=== PATIENT | male | born 1945 | race Caucasian/White ===

== ENCOUNTER → 2016-12-05 | Outpatient (CLI) | payer OTHER, MEDICARE | LOC: BMCIMAGING 13:01 | PROVIDERS: ATTEND Internal Medicine | DX: R50.9 Fever, unspecified (principal); R61 Generalized hyperhidrosis ==

== ENCOUNTER 2017-03-23 14:03 | Emergency (ER) | payer OTHER, MEDICARE ==
--- NOTE | 2017-03-23 14:15 | EDPHY ---
H & P Stated Complaint: EKG at PCP showed a flutter, new Dx, only c/o mild SOB Time Seen by Provider: 03/23/17 14:14 HPI/ROS: CHIEF COMPLAINT: Newly diagnosed arrhythmia HISTORY OF PRESENT ILLNESS: The patient is referred from his primary care provider's office for evaluation of asymptomatic tachycardia. The patient reports a prior history of atrial fibrillation approximately 15 years ago. The patient takes no current medications. The patient denies any chest pain or shortness of breath currently. He has been having mild intermittent dyspnea for the past several months. The patient has no sensation of tachycardia currently. The patient denies fever, cough or congestion. He denies asymmetric calf pain or swelling. He denies additional acute complaints. REVIEW OF SYSTEMS: A comprehensive 10 point review of systems is otherwise negative aside from elements mentioned in the history of present illness. Source: Patient - Personal History Current Tetanus/Diphtheria Vaccine: Unsure - Medical/Surgical History Hx Asthma: Yes Hx Chronic Respiratory Disease: No Hx Diabetes: No Hx Cardiac Disease: No Hx Renal Disease: No Hx Cirrhosis: No Hx Alcoholism: No Hx HIV/AIDS: No Hx Splenectomy or Spleen Trauma: No Other PMH: PMH: asthma. PSH: hernia repair - Social History Smoking Status: Never smoked - Physical Exam Exam: General Appearance: Alert, no distress Eyes: Pupils equal and round no pallor or injection ENT, Mouth: Mucous membranes moist Respiratory: There are no retractions, lungs are clear to auscultation Cardiovascular: Tachycardic, regular Gastrointestinal: Abdomen is soft and nontender, no masses, bowel sounds normal Neurological: A&O, normal motor function, normal sensory exam, normal cranial nerves Skin: Warm and dry, no rashes Musculoskeletal: Neck is supple nontender Extremities: symmetrical, full range of motion Constitutional: Initial Vital Signs Temperature (C) 36.3 C 03/23/17 14:08 Heart Rate 126 H 03/23/17 14:08 Respiratory Rate 16 03/23/17 14:08 Blood Pressure 114/95 H 03/23/17 14:08 O2 Sat (%) 91 L 03/23/17 14:08 O2 Delivery Mode Room Air Allergies/Adverse Reactions: No Known Allergies Allergy (Unverified 03/23/17 14:07) Home Medications: Medication Instructions Recorded Advair 250/50 (*) 03/23/17 Odette Allergy 03/23/17 Medical Decision Making - Diagnostics EKG Interpretation: EKG: Complete interpretation has been separately recorded in the [facility] archive. Summary impression: Atrial flutter, rate 128 Imaging Results: Imaging Impressions Chest X-Ray 03/23/17 14:20 Impression: Clear lungs. No acute process. ED Course/Re-evaluation: The patient presents to the ED with atrial flutter of undetermined chronicity. The patient is asymptomatic. The patient's chest x-ray demonstrates no evidence of failure. The patient's D-dimer is negative which I feel adequately excludes pulmonary embolism. The patient is not anemic. He is in no acute distress. The patient did receive 30 mg of oral diltiazem in the emergency department. I consulted with Dr. Luis Alfredo Soto from the [facility]. The patient will be started on Eliquis and oral diltiazem. He will contact Dr. Soto's a office in the morning to schedule a follow-up visit for further evaluation of his atrial flutter. The patient was examined by myself several times throughout his stay in the emergency department. He continues to have no chest pain or shortness of breath. He is comfortable being discharged home and following up with Cardiology. Differential Diagnosis: Differential diagnosis considered includes atrial fibrillation, atrial flutter, congestive heart failure, myocardial infarction, pulmonary embolism - Data Points Laboratory Results: Laboratory Results 03/23/17 14:15 03/23/17 14:15 03/23/17 03/23/17 03/23/17 14:15 14:15 14:15 WBC 8.30 10^3/uL 10^3/uL (3.80-9.50) RBC 5.24 10^6/uL 10^6/uL (4.40-6.38) Hgb 16.6 g/dL g/dL (13.7-17.5) Hct 47.3 % % (40.0-51.0) MCV 90.3 fL fL (81.5-99.8) MCH 31.7 pg pg (27.9-34.1) MCHC 35.1 g/dL g/dL (32.4-36.7) RDW 13.8 % % (11.5-15.2) Plt Count 218 10^3/uL 10^3/uL (150-400) MPV 10.2 fL fL (8.7-11.7) Neut % (Auto) 55.2 % % (39.3-74.2) Lymph % (Auto) 22.8 % % (15.0-45.0) [place] % (Auto) 9.5 % % (4.5-13.0) Eos % (Auto) 11.4 % H % (0.6-7.6) Baso % (Auto) 0.7 % % (0.3-1.7) Nucleat RBC Rel Count 0.0 % % (0.0-0.2) Absolute Neuts (auto) 4.58 10^3/uL 10^3/uL (1.70-6.50) Absolute Lymphs (auto) 1.89 10^3/uL 10^3/uL (1.00-3.00) Absolute Monos (auto) 0.79 10^3/uL 10^3/uL (0.30-0.80) Absolute Eos (auto) 0.95 10^3/uL H 10^3/uL (0.03-0.40) Absolute Basos (auto) 0.06 10^3/uL 10^3/uL (0.02-0.10) Absolute Nucleated RBC 0.00 10^3/uL 10^3/uL (0-0.01) Immature Gran % 0.4 % % (0.0-1.1) Immature Gran # 0.03 10^3/uL 10^3/uL (0.00-0.10) D-Dimer 0.46 ug/mLFEU ug/mLFEU (0.00-0.50) Sodium 142 mEq/L mEq/L (134-144) Potassium 4.5 mEq/L mEq/L (3.5-5.2) Chloride 109 mEq/L mEq/L (97-110) Carbon Dioxide 22 mEq/l mEq/l (22-31) Anion Gap 11 mEq/L mEq/L (8-16) BUN 20 mg/dL mg/dL (7-23) Creatinine 0.9 mg/dL mg/dL (0.7-1.3) Estimated GFR > 60 Glucose 120 mg/dL H mg/dL (70-100) Calcium 9.5 mg/dL mg/dL (8.5-10.4) Troponin I < 0.012 ng/mL ng/mL (0.000-0.034) NT-Pro-B Natriuret Pep 132 pg/mL H pg/mL (0-125) Medications Given: Discontinued Medications Diltiazem HCl (Cardizem Immediate Release) 30 mg PO EDNOW ONE Stop: 03/23/17 14:43 Last Admin: 03/23/17 15:46 Dose: 30 mg Departure - Departure Disposition: Home, Routine, Self-Care Clinical Impression: Atrial flutter Condition: Good Instructions: A-fib (Atrial Fibrillation) (ED) Additional Instructions: 1. Please begin diltiazem and Eliquis as prescribed. 2. Please contact the legal editor at [facility], Dr. Soto, tomorrow to schedule a follow-up visit for your atrial flutter. 3. Please return to the ED for any chest pain or shortness of breath. Referrals: Prakash Soto MD [Medical Doctor] - As per Instructions
--- NOTE | 2017-03-23 14:17 | CPEKG ---
Heart Rate: 128 RR Interval: 469 P-R Interval: 125 QRSD Interval: 100 QT Interval: 336 QTC Interval: 491 P [place]: 0 QRS [place]: 260 T Wave [place]: 51 EKG Severity - ABNORMAL ECG - EKG Impression: A-FLUTTER W/ PREDOM 2:1 AV BLOCK, A-RATE 0 Electronically Signed By: Alan Torres 23-Mar-2017 15:57:41
[2017-03-23 14:27] LABS: % IMMATURE GRANULYOCYTES 0.4 % (0.0-1.1); ABSOLUTE IMMATURE GRANULOCYTES 0.03 10^3/uL (0.00-0.10); ADD DIFF? NO; ADD MORPH? NO; ADD SCAN? NO; ATYPICAL LYMPHOCYTE FLAG 0 (0-99); FRAGMENT RBC FLAG 0 (0-99); HEMATOCRIT 47.3 % (40.0-51.0); HEMOGLOBIN 16.6 g/dL (13.7-17.5); LEFT SHIFT FLG 0 (0-99); LIPEMIA HEMOLYSIS FLAG 90 (0-99); MEAN CELL HEMOGLOBIN 31.7 pg (27.9-34.1); MEAN CELL HEMOGLOBIN CONCENTR. 35.1 g/dL (32.4-36.7); MEAN CELL VOLUME 90.3 fL (81.5-99.8); MEAN PLATELET VOLUME 10.2 fL (8.7-11.7); PLATELET CLUMPS FLAG 0 (0-99); PLATELET COUNT 218 10^3/uL (150-400); RED BLOOD CELL COUNT 5.24 10^6/uL (4.40-6.38); RED CELL DISTRIBUTION WIDTH 13.8 % (11.5-15.2)
[2017-03-23 14:40] LABS: ANION GAP 11 mEq/L (8-16); CALCIUM 9.5 mg/dL (8.5-10.4); CARBON DIOXIDE 22 mEq/l (22-31); CHLORIDE 109 mEq/L (97-110); CREATININE 0.9 mg/dL (0.7-1.3); GLOMERULAR FILTRATION RATE > 60; GLUCOSE 120 mg/dL (70-100); POTASSIUM 4.5 mEq/L (3.5-5.2); SODIUM 142 mEq/L (134-144)
[2017-03-23] MEDS ORDERED: DILTIAZEM 30 MG TAB PO ONE (14:42)
[2017-03-23 14:52] LABS: TROPONIN I < 0.012 ng/mL (0.000-0.034)
[2017-03-23] MEDS ORDERED: APIXABAN 5 MG TAB PO ONE (15:53)
[2017-03-23 16:49] VITALS: BP 116/82; PULSE 110; RESP 15; TEMP 98.2; O2SAT 94
== END 2017-03-23 16:47 | disposition home or self-care (01) ==
DX: I48.92 Unspecified atrial flutter (principal); J45.909 Unspecified asthma, uncomplicated

== ENCOUNTER 2017-03-30 07:32 | Day surgery (SDC) | payer OTHER, MEDICARE ==
[2017-03-30] MEDS ORDERED: NS 500 ML IV ONE (07:44)
[2017-03-30] MEDS ORDERED: fentaNYL 100 MCG/2 ML INJ IVP ONE (07:44)
[2017-03-30] MEDS ORDERED: MIDAZOLAM 2 MG/2 ML VIAL IVP ONE (07:44)
[2017-03-30] MEDS ORDERED: BENZOCAINE UNIT DOSE SPRAY HURRICAINE MM ONE (07:44)
[2017-03-30] MEDS ORDERED: ATROPINE SULFATE 1 MG/10 ML SYR IVP ONE (07:44)
--- NOTE | 2017-03-30 08:09 | CPEKG ---
Heart Rate: 117 RR Interval: 513 P-R Interval: 60 QRSD Interval: 104 QT Interval: 380 QTC Interval: 531 P [place]: 0 QRS [place]: 264 T Wave [place]: -37 EKG Severity - ABNORMAL ECG - EKG Impression: ATRIAL FLUTTER EKG Impression: LEFT ANTERIOR FASCICULAR BLOCK EKG Impression: PROLONGED QT INTERVAL Electronically Signed By: Janet Hopkins 30-Mar-2017 08:43:25
[2017-03-30 08:57] LABS: INR 1.02 (0.83-1.16); PROTIME(PATIENT) 13.6 SEC (12.0-15.0)
[2017-03-30 08:58] LABS: ANION GAP 10 mEq/L (8-16); APTT 29.6 SEC (23.0-38.0); CALCIUM 9.1 mg/dL (8.5-10.4); CARBON DIOXIDE 24 mEq/l (22-31); CHLORIDE 107 mEq/L (97-110); CREATININE 0.9 mg/dL (0.7-1.3); GLOMERULAR FILTRATION RATE > 60; GLUCOSE 99 mg/dL (70-100); MAGNESIUM 1.8 mg/dL (1.6-2.3); POTASSIUM 4.1 mEq/L (3.5-5.2); SODIUM 141 mEq/L (134-144)
[2017-03-30] MEDS ORDERED: APIXABAN 5 MG TAB ONE (09:01)
[2017-03-30] MEDS ORDERED: APIXABAN 5 MG TAB PO ONE (09:15)
--- NOTE | 2017-03-30 09:21 | PDGENHP ---
History & Physical Chief Complaint: New onset Aflutter History of Present Illness: 71 year old male with new onset atrial flutter. PMH of asthma. Relevant Physical Exam: Awake, alert, appropriate.
[2017-03-30] MEDS ORDERED: PROPOFOL 200 MG/20 ML VIAL ONE ×2 (10:16)
--- NOTE | 2017-03-30 10:20 | PDANEPAE ---
ANE History of Present Illness new onset a. flutter p/f LEONCIO/CV ANE Past Medical History - Cardiovascular History Hx Hypertension: No Hx Arrhythmias: Yes Hx Chest Pain: No Hx Coronary Artery / Peripheral Vascular Disease: No Hx CHF / Valvular Disease: No Hx Palpitations: No - Pulmonary History Hx COPD: No Hx Asthma/Reactive Airway Disease: Yes Hx Recent Upper Respiratory Infection: No Hx Oxygen in Use at Home: No Hx Sleep Apnea: No - Endocrine History Hx Diabetes: No Obesity: no ANE Review of Systems Review of systems is: negative Review of Systems: - Exercise capacity Exercise capacity: >=4 METS ANE Patient History - Allergies Allergies/Adverse Reactions: No Known Allergies Allergy (Unverified 03/23/17 14:07) - Home Medications Home medications: home medication list seen and reviewed Home Medications: Advair 250/50 (*) 03/23/17 [Last Taken Unknown] Odette Allergy 03/23/17 [Last Taken Unknown] - Anes Hx Anes Hx: no prior problems - Smoking Hx Smoking Status: Never smoked ANE Labs/Vital Signs - Labs Result Diagrams: 03/30/17 08:20 - Vital Signs Height: 182.88 cm Weight: 97.069 kg ANE Physical Exam - Airway Neck exam: FROM Mallampati Score: Class 1 Mouth exam: normal dental/mouth exam - Pulmonary Pulmonary: no respiratory distress - Cardiovascular Cardiovascular: regular rate and rhythym - ASA Status ASA Status: III ANE Anesthesia Plan Anesthesia Plan: GA with mask
--- NOTE | 2017-03-30 10:51 | CPEKG ---
Heart Rate: 86 RR Interval: 698 P-R Interval: 200 QRSD Interval: 96 QT Interval: 364 QTC Interval: 436 P [place]: 71 QRS [place]: 72 T Wave [place]: 29 EKG Severity - OTHERWISE NORMAL ECG - EKG Impression: SINUS RHYTHM EKG Impression: ATRIAL PREMATURE COMPLEX EKG Impression: LOW VOLTAGE IN FRONTAL LEADS EKG Impression: COMPARED WITH 03/30/2017 AT 8:07 A.M., SINUS RHYTHM HAS BEEN RESTORED. AXIS IS EKG Impression: SHIFTED. Electronically Signed By: Janet Hopkins 30-Mar-2017 17:18:50
--- NOTE | 2017-03-30 10:54 | POSTANESTH ---
Post Anesthetic Evaluation Cardiovascular Status: Normal, Stable Respiratory Status: Normal, Stable Level of Consciousness/Mental Status: Can Participate in Eval Pain Control: Adequate, Prn Tx Ordered Nausea/Vomiting Control: Adequate, Prn Tx Ordered Complications Possibly Related to Anesthesia: None Noted
--- NOTE | 2017-03-30 14:20 | ECHO ---
[email or web address] [address] [address] Main: [phone] Fax: Transesophageal Echocardiography Name: KEESHA MARTINEZ MR#: [id number] Study Date: 03/30/2017 Study Time: 09:46 AM Date of : 1945 Age: 71 year(s) Height: ( ) Weight: ( ) BSA: Gender: Male Examination: LEONCIO Indication: Atrial Flutter Image Quality: Contrast: Requested by: Prakash Soto Heart Rate: Rhythm: BP: 132 mmHg/112 mmHg Procedure Staff Ceramic Sprayer: Kelsey Gomez Physician: Prakash Soto Requesting Provider: LEONCIO Exam Details Conclusions: Normal global systolic LV function. EF is 60 %. Normal RV function. Normal appearing atrial septum. No thrombus is noted in the left atrium. No thrombus in left appendage. The right atrium is mildly dilated. Measurements: Chambers Valvular Assessment AV/MV Valvular Assessment TV/PV Normal Normal Normal Name Value Range Name Value Range Name Value Range LVEF (BP): 60 % (>=55 %) Additional Measurements: Findings: Left Ventricle: Normal global systolic LV function. EF is 60 %. The ejection fraction, measured by Simpsons method, is 60 %. Right Ventricle: Normal RV function. Left Atrium: Patient: KEESHA MARTINEZ Study Date: 03/30/2017 Page 1 of 2 09:46 AM Normal appearing atrial septum. No thrombus is noted in the left atrium. Left Atrial Appendage: No thrombus in left appendage. Right Atrium: The right atrium is mildly dilated. Mitral Valve: The mitral valve is normal in appearance. Trivial mitral valve regurgitation. Aortic Valve: The aortic valve is tri-leaflet. Mild aortic cusp calcification is noted. Tricuspid Valve: The tricuspid valve appears normal. Pulmonic Valve: Pulmonary valve not visualized. l1n (No Signature Object) Patient: KEESHA MARTINEZ Study Date: 03/30/2017 Page 2 of 2 09:46 AM [id number]
--- NOTE | 2017-03-30 20:47 | CPR ---
[f rep st] NONINVASIVE CARDIAC PROCEDURE REPORT DATE OF PROCEDURE: 03/30/2017 PROCEDURE: Transesophageal echocardiogram with cardioversion. INDICATION FOR PROCEDURE: Atrial flutter with 2:1 block that has persisted for at least the last week. SUMMARY: Mr. Roa is a pleasant 71-year-old gentleman with a known history of asthma diagnosed approximately 1 year ago who presented to his primary care physician's office last week, Dr. Amadou Polo for a routine physical exam. He was found to be in atrial flutter with 2:1 block at approximately 138 beats per minute. He was sent to the emergency department for evaluation. At that point he was stable. He was started on diltiazem 30 mg p.o. b.i.d., and started on anticoagulation with Eliquis 5 mg p.o. b.i.d., based on age, weight, and renal function. He presented to my office last week. He remained in atrial flutter. He has been compliant with his Eliquis. He was asymptomatic, but in the setting of persistent atrial flutter with 2:1 block , the decision was made to pursue LEONCIO guided cardioversion. He remained on Eliquis over the weekend. He did not take his Eliquis this morning; however, he received his Eliquis this morning while here. After appropriate consents for both LEONCIO and cardioversion were obtained, the patient was sedated with anesthesia. Bite block was in place. LEONCIO probe was passed without incident. Detailed images of the left atrial appendage were obtained. There was no evidence of left atrial appendage thrombus or evidence of left atrial thrombus. Please see LEONCIO for complete report. After LEONCIO probe was removed, the patient was cardioverted with a single biphasic synchronized shock of 150 joules into normal sinus rhythm at approximately 80 beats per minute. The patient tolerated the procedure well. At the time of dictation he was he was waking up gradually without complications. PLAN: The patient will continue Eliquis 5 mg p.o. b.i.d. for at least the next 30 days without interruption. This has been stressed to both the patient and his . He will remain on his current dose of diltiazem. Cardiac workup as noted in my office note from last week. 40 min spent coordinating care /[id number]/MODL MTDD
== END 2017-03-30 12:24 | disposition home or self-care (01) ==
LOC: FCATH 07:32
PROVIDERS: ATTEND Internal Medicine Cardiovascular Disease
PROC: B245ZZ4 Ultrasonography of Left Heart, Transesophageal (ICD-10-PCS; principal; 2017-03-30)
DX: I48.92 Unspecified atrial flutter (principal); J45.909 Unspecified asthma, uncomplicated; Z79.01 Long term (current) use of anticoagulants
CPT/HCPCS: J2704

== ENCOUNTER → 2017-08-25 | Outpatient (CLI) | payer OTHER, MEDICARE | LOC: FCPNEURO 21:00 | PROVIDERS: ATTEND Psychiatry & Neurology Sleep Medicine | DX: G47.33 Obstructive sleep apnea (adult) (pediatric) (principal) ==